=== PATIENT | male | born 1970 | race Caucasian/White ===

== ENCOUNTER 2024-07-12 14:05 | Emergency (ER) | payer MEDICAID ==
[~2024-07-12] VITALS: Ht 170.2 cm; Wt 86.0 kg
[2024-07-12 14:07] VITALS: O2SAT 97
[2024-07-12 14:26] VITALS: BP 144/85; PULSE 85; RESP 12; TEMP 36.9; O2SAT 96
[2024-07-12 15:10] LABS: BASOPHILS % 0.5 % (0.0-2.0); EOSINOPHILS % 2.5 % (0.0-5.0); HEMATOCRIT. 45.3 % (42.0-52.0); HEMOGLOBIN. 15.4 g/dL (14.0-18.0); LYMPHOCYTES % 22.5 % (20.0-50.0); MEAN CORPUSCULAR HEMOGLOBIN 28.6 pg (28.0-32.0); MEAN CORPUSCULAR VOLUME 84.3 fL (80.0-94.0); MEAN PLATELET VOLUME 10.2 fl (7.4-10.4); MONOCYTES % 9.2 % (2.0-8.0); NEUTROPHILS % 65.3 % (40.0-76.0); PLATELET 179 x1000/uL (130-400); RED BLOOD CELL COUNT 5.38 mill/uL (4.7-6.1); RED CELL DISTRIBUTION WIDTH 13.3 % (11.6-14.6); WHITE BLOOD COUNT 8.1 x1000/uL (4.5-11.0)
[2024-07-12 15:16] LABS: CHLORIDE 105 mEq/L (98-107); POTASSIUM 3.7 mEq/L (3.5-5.1); SODIUM 141 mEq/L (136-145)
[2024-07-12 15:17] LABS: CARBON DIOXIDE 30 mEq/L (21-32)
[2024-07-12 15:18] LABS: CALCIUM 9.5 mg/dL (8.7-10.4)
[2024-07-12 15:22] LABS: CREATININE 0.8 mg/dL (0.6-1.3); GLUCOSE 133 mg/dL (70-105)
[2024-07-12 15:23] LABS: UREA NITROGEN BLOOD 10 mg/dL (9-23)
[2024-07-12 15:37] LABS: TROPONIN I HIGH SENSITIVITY < 4 ng/L (3.0-53)
[2024-07-12 15:40] LABS: ALANINE AMINOTRANSFERASE 57 IU/L (10-49); ALBUMIN 4.4 g/dL (3.2-4.8); ASPARTATE AMINOTRANSFERASE 30 IU/L (<34); BILIRUBIN DIRECT 0.2 mg/dL (<=3.0); BILIRUBIN TOTAL 0.9 mg/dL (0.1-1.0); PROTEIN TOTAL 7.7 g/dL (6.0-8.3)
[2024-07-12] MEDS: ASPIRIN 325MG EC TABLET PO ONE (15:43)
[2024-07-12] MEDS: NITROGLYCERIN 0.4MG TABLET SL SL ONE (15:43)
== END 2024-07-12 18:48 | disposition home or self-care (01) ==
LOC: ER 14:05
DX: R07.9 Chest pain, unspecified (principal)
CPT/HCPCS: 36415; 71045; 80048; 80076; 84484; 85025; 85379; 93005; 99285